=== PATIENT | female | born 1965 | race Caucasian/White ===

== ENCOUNTER 2017-08-23 23:51 | Inpatient (IN) | payer SELFPAY ==
[~2017-08-23] VITALS: Ht 157.5 cm; Wt 57.1 kg
[2017-08-24] VITALS (9 sets, daily range): BP systolic 105–159; BP diastolic 63–79; PULSE 82–100; RESP 18–29; TEMP 97.2–98.8; O2SAT 95–98
[2017-08-24] MEDS ORDERED: HYDROmorphone HCL PF 2 MG/ML VIAL IV ONE (02:15)
[2017-08-24] MEDS ORDERED: SODIUM CHLOR 0.9% 1000 ML INJ 1,000 ML IV ONE (03:30)
[2017-08-24] MEDS ORDERED: PROCHLORPERAZINE INJ 10 MG/2 ML VIAL IM ONE (03:30)
[2017-08-24] MEDS ORDERED: diphenhydrAMINE HCL 50 MG/ML VIAL IV PUSH ONE (03:30)
[2017-08-24] MEDS ORDERED: SODIUM CHLOR 0.9% 1000 ML INJ 1,000 ML IV SCH (03:51)
[2017-08-24] MEDS ORDERED: POTASSIUM PHOSPHATE INJ 30 MMOL in SODIUM CHLOR 0.9% 250 ML INJ 250 ML IV PRN (04:00)
[2017-08-24] MEDS ORDERED: POTASSIUM CHLOR 20 MEQ PREMIX 100 ML IV PRN ×2 (04:00)
[2017-08-24] MEDS ORDERED: ACETAMINOPHEN 325 MG TAB PO PRN (04:00)
[2017-08-24] MEDS ORDERED: SENNOSIDES 8.6 MG TAB PO PRN (04:00)
[2017-08-24] MEDS ORDERED: RESP: ALBUTEROL 2.5 MG/3 ML NEB (PRN) INH (04:00)
[2017-08-24] MEDS ORDERED: MAGNESIUM HYDROXIDE SUSP 30 ML CUP PO PRN (04:00)
[2017-08-24] MEDS ORDERED: MAGNESIUM SULFATE INJ 4 GM in SODIUM CHLORIDE 0.9% INJ 92 ML IV PRN (04:00)
[2017-08-24] MEDS ORDERED: MAGNESIUM OXIDE 400 MG TAB PO PRN (04:00)
[2017-08-24] MEDS ORDERED: MISCELLANEOUS NURSING INFORMATION XX SCH (04:00)
[2017-08-24] MEDS ORDERED: POTASSIUM CHLOR 40 MEQ PREMIX 100 ML IV PRN ×2 (04:00)
[2017-08-24] MEDS ORDERED: DEXAMETHASONE SOD PHOS 20 MG/5 ML VIAL IV PUSH ONE (04:00)
[2017-08-24] MEDS ORDERED: POTASSIUM CHLORIDE 25 MEQ EFFERVESCENT TAB PO PRN (04:00)
[2017-08-24] MEDS ORDERED: BISACODYL 10 MG SUPP RECTAL PRN (04:00)
[2017-08-24] MEDS ORDERED: LACTULOSE SYRUP 20 GM/30 ML CUP PO PRN (04:00)
[2017-08-24] MEDS ORDERED: MAGNESIUM SULFATE INJ 2 GM in SODIUM CHLORIDE 0.9% INJ 96 ML IV PRN (04:00)
[2017-08-24] MEDS ORDERED: SODIUM PHOSPHATE INJ 30 MMOL in SODIUM CHLOR 0.9% 250 ML INJ 240 ML IV PRN (04:00)
[2017-08-24] MEDS ORDERED: SODIUM CHLORIDE 0.9% FLUSH 10 ML FLUSH IV FLUSH PRN (04:00)
[2017-08-24] MEDS ORDERED: ONDANSETRON HCL 4 MG/2 ML VIAL IV PUSH PRN (04:00)
[2017-08-24] MEDS ORDERED: POTASSIUM PHOSPHATE MONOBASIC 500 MG TAB PO PRN (04:00)
[2017-08-24] MEDS ORDERED: traZODone HCL 50 MG TAB PO PRN (04:00)
[2017-08-24] MEDS ORDERED: CHLORHEXIDINE GLUCONATE 2 % 1 PACK (2 CLOTHS) TOP PRN (04:00)
[2017-08-24] MEDS: CHLORHEXIDINE GLUCONATE 2 % 1 PACK (2 CLOTHS) TOP SCH (04:00)
[2017-08-24] MEDS ORDERED: POTASSIUM PHOSPHATE MONOBASIC 500 MG TAB PO/TUBE PRN (04:00)
[2017-08-24] MEDS: ACETAMIN 325 MG/BUTALBITAL 50 MG/CAFFEINE 40 MG TAB PO PRN ×3 (04:34→21:39)
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
[2017-08-24] MEDS ORDERED: hydrALAZINE HCL 20 MG/ML VIAL IV PUSH PRN (07:15)
[2017-08-24] MEDS ORDERED: DEXTROSE 50% IN WATER 50 ML VIAL(D50) IV PUSH PRN (07:30)
[2017-08-24] MEDS ORDERED: GLUCAGON 1 MG/ML VIAL OTHER PRN (07:30)
[2017-08-24] MEDS: INSULIN ASPART SUPPLEMENTAL SCALE SQ SCH ×4 (08:00→20:52)
[2017-08-24] MEDS: DOCUSATE SODIUM 50 MG/SENNA 8.6 MG TAB PO SCH ×2 (08:05→20:52)
[2017-08-24] MEDS: SODIUM CHLORIDE 0.9% FLUSH 10 ML FLUSH IV FLUSH SCH ×2 (08:05→20:52)
[2017-08-24] MEDS: PANTOPRAZOLE SOD 40 MG DELAYED RELEASE TAB PO SCH (08:06)
[2017-08-24 09:10] LABS: BICARBONATE 24.2 MEQ/L (21.0-32.0); CALCIUM 9.2 MG/DL (8.5-10.1); CREATININE 0.62 MG/DL (0.50-1.00)
[2017-08-24] MEDS: oxyCODONE/ACETAMINOPHEN 10 MG/325 MG TAB PO PRN ×3 (09:36→20:50)
[2017-08-24] MEDS ORDERED: LORazepam 2 MG/ML VIAL ONE (11:03)
[2017-08-24] MEDS ORDERED: LORazepam 2 MG/ML VIAL IV PUSH ONE (11:15)
[2017-08-24] MEDS ORDERED: GADODIAMIDE PF 287 MG/ML 10 ML VIAL (for RAD MRI) IVCONTRAST ONE (11:30)
--- NOTE | 2017-08-24 12:00 | RADRPT ---
EXAM DATE/TIME: 08/24/2017 11:01 [facility] COMPARISON: No previous studies available for comparison. INDICATIONS : Cephalgia. CONTRAST: 10 cc Omniscan (gadodiamide) IV MEDICAL HISTORY : None. SURGICAL HISTORY : Cholecystectomy. Breast augmentation. Mastoid surgery. ENCOUNTER: Initial ACUITY: 1 day PAIN SCORE: 4/10 LOCATION: cranial TECHNIQUE: Multiplanar, multisequence MRI of the brain was performed both prior to and following the administrat ion of paramagnetic contrast. FINDINGS: CEREBRUM: The ventricles are normal for age. No evidence of midline shift, mass lesion, hemorrhage or acute in farction. No extraaxial fluid collections are seen. The pituitary gland and suprasellar cistern are normal in configuration. WHITE MATTER: No significant signal abnormalities are seen in the white matter. POSTERIOR FOSSA: The cerebellum and brainstem are intact. The 4th ventricle is midline. The cerebellopontine angle is unremarkable. The cerebellar tonsils are normal in position. DIFFUSION IMAGING: No focal areas of restricted diffusion are seen. No evidence of acute infarction. EXTRACRANIAL: The visualized portions of the orbits and paranasal sinuses are unremarkable. POST-CONTRAST: No abnormal areas of parenchymal or dural enhancement. No evidence of blood-brain barrier breakdown. CONCLUSION: No acute disease. Sendy Cabrera MD on August 24, 2017 at 11:57 Board Certified Radiologist. This report was verified electronically.
--- NOTE | 2017-08-24 12:02 | RADRPT ---
EXAM DATE/TIME: 08/24/2017 11:01 [facility] COMPARISON: MRI BRAIN W & W/O CONTRAST, August 24, 2017, 11:01. INDICATIONS : Cephalgia. MEDICAL HISTORY : None. SURGICAL HISTORY : Cholecystectomy. Breast augmentation. Mastoid surgery. ENCOUNTER: Initial ACUITY: 1 day PAIN SCORE: 4/10 LOCATION: cranial Please note a normal MRA of the brain does not entirely exclude the possibility of a small aneurysm, nor the possibility of distal intracranial vessel disease. TECHNIQUE: 3D time of flight MRA was performed. Source images, multiplanar STS MIP, and 3D volume MIP reconstru ctions were reviewed. FINDINGS: There is excellent visualization of the major intracranial arteries out to the second-order branch ve ssels. There is no evidence for aneurysm, vessel truncation or stenosis, and no evidence for vascula r malformation. CONCLUSION: Normal examination. Senyd Cabrera MD on August 24, 2017 at 11:58 Board Certified Radiologist. This report was verified electronically.
--- NOTE | 2017-08-24 15:40 | HHI.CCPN ---
Subjective Remarks/Hospital Course 51-year-old female who reports past medical history of migraine headaches who presented to [facility] 08/23/17 due to severe headache and was transferred to [facility] due to inability to rule out subarachnoid hemorrhage. She states headache started in the morning of 08/23 and gradually worsened throughout the day. She is unsure what she was doing when it started. She describes the pain as "throbbing" and "like her head is being split in two", very severe. Her whole head hurts but is worse on the left side. Headache is worse with moving her head or with sitting up and these maneuvers cause her to feel nauseated. She reports neck stiffness, photophobia , chills. No visual changes/scotoma. She did not check her temperature at home and was afebrile at the outside hospital and upon arrival. She states symptoms were not improved when she took acetaminophen and Percocet at home. She received morphine 5 mg Iv x2 in the emergency department each about an hour apart without relief. She was hypertensive with systolic blood pressure in the 180s over 90s, maximum BP was 225/128. Her blood pressure improved with hydralazine and she received a total of 10 mg IV 2 doses while in the ED and SBP came down to 120s to 130s. CT brain showed no acute abnormality. CBC had a white count of 8.1, hemoglobin 14, normal platelet count. Coags were normal. Normal sodium and creatinine. Lumbar puncture was performed around 9:30 PM on 08/24/17. Vial #2 had white blood cell count of 4 and 714 RBC. Vial #4 had 3 WBC and 336 RBC. Supernatant was clear with no xanthrochromia (and LP performed >8 hours from onset of symptoms). CSF protein and glucose were normal at 31.7 and 56 respectively. HSV PCR was sent and is pending. Although RBC count in CSF was downtrending, it did not clear completely and therefore SAH could not be ruled out so she has been transferred for ongoing evaluation, workup and headache management. She still complains of severe headache and nausea. Has decreased sensation soft touch to L face and L extremities. She states she has had 7-8 migraine headaches in her life, is not on preventative therapy, last headache was 2 years ago, unsure what abortive meds she was given in the past. She has chronic neck and R hip pain for which she takes percocet. Drinks 2 pots of coffee daily but has not cut back, drank coffee today at [place]. States this headache is worse than prior migraines and she never noticed sensory changes before. She states her children have had upper respiratory symptoms last week, were told by doctor they had a virus. She has had sore and dry cough for several days. 08/24 1500 hours: MRI and MRA are normal. No aneurysm. Possibly a migraine variant, will ask neurology to see. Objective Vital Signs Date Time Temp Pulse Resp B/P (MAP) Pulse Ox O2 Delivery O2 Flow Rate FiO2 08/24/17 14:00 92 08/24/17 12:00 98.5 29 106/66 (79) 98 08/24/17 07:00 Room Air Intake and Output 08/24/17 08/24/17 08/25/17 08:00 16:00 00:00 Intake Total 2050 ml Balance 2050 ml Result Diagram: 08/24/17805 Objective Remarks GENERAL: Well-nourished, well-developed patient who is sitting up in ISC bed, rubbing her forehead with her hand repeatedly, in a darkened room. SKIN: Warm and dry. HEAD: Atraumatic. Normocephalic. EYES: Pupils equal and round, 3 mm and reactive to 2 mm bilaterally. + photophobia during exam. No scleral icterus. No injection or drainage. ENT: No nasal bleeding or discharge. Mucous membranes pink and moist. NECK: Trachea midline. No JVD. Will not perform [id number]. Negative Kernig/ Brudzinski CARDIOVASCULAR: Regular rate and rhythm. No murmurs rubs or gallops. RESPIRATORY: No accessory muscle use. Clear to auscultation. Breath sounds equal bilaterally. GASTROINTESTINAL: Abdomen soft, non-tender, nondistended. Bowel sounds present. MUSCULOSKELETAL: Extremities without clubbing, cyanosis, or edema. No obvious deformities. NEUROLOGICAL: Awake and alert. Oriented x4. No obvious cranial nerve deficits. EOMI with no nystagmus. She reports decreased sensation to soft touch L face and LUE/LLE compared with the right. Sensation to temperature equal. No pronator drift. Strength 5/5 all extremities. A/P Assessment and Plan NEURO: Acute headache Traumatic tap vs. ?SAH Chronic neck and right hip pain CT at [place] negative for SAH. Lumbar puncture with downtrending PRBC, though did not clear completely. Lack of xanthochromia argues against subarachnoid hemorrhage. Ideally would perform CTA to rule out aneurysm however patient states she had severe allergic reaction to IV contrast when she had CT chest at [facility]. She states she had syncope and respiratory difficulty. Did not require ICU admission. Has never had another contrasted scan. Is opposed to risk of IV contrast even if pretreated with steroid/benadryl and under critical care monitoring. She definitely has significant headache and this includes some decreased sensation L face and extremities. Will proceed with MRI and MRA to evaluate for e/o aneurysm which would also help to determine if alternate explanation for symptoms, recognizing this may have lower sensitivity for small aneurysms. Symptoms would be consistent with migraine with sensory aura. This would not be expected to respond well to opioids so will try Compazine/benadryl with decadron for prevention of headache recurrence. Fiorcet prn. Consider outpatient followup for preventative therapy. CSF unremarkable for infection. F/u HSV and culture at [place] for completion. Bolus 1 L IVF for prevention spinal headache. We will continue chronic home Percocet RESP: Tobacco abuse On RA Cessation counseling CV: Hypertension May have underlying undiagnosed hypertension but likely acutely exacerbated by pain. Hydralazine/labetalol as needed for systolic blood pressure greater than 140 GI: Clear liquid diet Bowel regimen FEN/RENAL: Normal renal function 0.9 NaCl at 84 mL/h for 1 L . ID: No evidence of infection. Follow-up final CSF culture and HSV PCR from [place] HEME: No acute hematologic issues ENDO: Monitor glucose after receiving steroids and administer low-dose insulin sliding scale as indicated. PROPH: SCDs for DVT prophylaxis. Avoid pharmacologic DVT prophylaxis due to lumbar puncture within 24 hours. Protonix 40 mg p.o. daily for stress ulcer prophylaxis after steroid. Can be discontinued after taking p.o. well. ACCESS: Peripheral IV providing adequate access at this time Patient updated at bedside regarding plan of care Overall impression: Major concern at [facility] was cerebral aneurysm. MRI normal. Brain MRA normal and no aneurysm. No subarachnoid blood. Severity of headache and persistence of elevated red cell count in the CSF triggered this workup. I cannot readily explain the facial numbness. My best guess is a migraine variant but I will ask the neurology service to evaluate. Berhane Bee MD Aug 24, 2017 15:40
--- NOTE | 2017-08-24 20:05 | EKG ---
Date Performed: 08/24/2017 Time Performed: 02:47:26 PTAGE: 51 years EKG: Sinus rhythm . Normal ECG NO PREVIOUS TRACING DOCTOR: Clint Pereira Interpretating Date/Time 08/24/2017 20:05:04
[2017-08-24] MEDS ORDERED: METHOCARBAMOL 500 MG TAB PO ONE (23:00)
[2017-08-25] VITALS: BP 95/54; PULSE 83; RESP 20; TEMP 97.9; O2SAT 96
[2017-08-25] MEDS: CHLORHEXIDINE GLUCONATE 2 % 1 PACK (2 CLOTHS) TOP SCH (04:00)
[2017-08-25 04:36] LABS: AUTOMATED NEUTROPHIL # 4.1 TH/MM3 (1.8-7.7); BASOPHIL # 0.1 TH/MM3 (0-0.2); EOSINOPHIL # 0.1 TH/MM3 (0-0.4); EOSINOPHIL % 1.7 % (0.0-4.0); HEMATOCRIT 37.2 % (35.0-46.0); HEMOGLOBIN 12.9 GM/DL (11.6-15.3); LYMPH % 39.8 % (9.0-44.0); LYMPHOCYTE # 3.4 TH/MM3 (1.0-4.8); MEAN CELL VOLUME 105.6 FL (80.0-100.0); MEAN CORPUSCULAR HEMOGLOBIN 36.5 PG (27.0-34.0); MEAN CORPUSCULAR HGB CONC 34.6 % (32.0-36.0); MEAN PLATELET VOLUME 7.4 FL (7.0-11.0); MONO % 9.3 % (0.0-8.0); MONOCYTE # 0.8 TH/MM3 (0-0.9); NEUT % 48.2 % (16.0-70.0); PLATELET COUNT 329 TH/MM3 (150-450); RED BLOOD COUNT 3.52 MIL/MM3 (4.00-5.30); RED CELL DISTRIBUTION WIDTH 12.1 % (11.6-17.2); WHITE BLOOD COUNT 8.5 TH/MM3 (4.0-11.0)
[2017-08-25 05:03] LABS: BICARBONATE 29.8 MEQ/L (21.0-32.0); CALCIUM 8.8 MG/DL (8.5-10.1); CREATININE 0.64 MG/DL (0.50-1.00)
[2017-08-25] MEDS: ACETAMIN 325 MG/BUTALBITAL 50 MG/CAFFEINE 40 MG TAB PO PRN ×2 (06:14→11:53)
[2017-08-25] MEDS: oxyCODONE/ACETAMINOPHEN 10 MG/325 MG TAB PO PRN ×2 (06:15→11:53)
[2017-08-25] MEDS ORDERED: POTASSIUM CHLORIDE 20 MEQ CONTROLLED RELEASE TAB PO ONE (06:30)
[2017-08-25 08:00] VITALS: BP 143/70; PULSE 81; RESP 20; TEMP 97.8; O2SAT 97
[2017-08-25] MEDS: INSULIN ASPART SUPPLEMENTAL SCALE SQ SCH ×2 (08:00→11:53)
[2017-08-25] MEDS: PANTOPRAZOLE SOD 40 MG DELAYED RELEASE TAB PO SCH (08:16)
[2017-08-25] MEDS: DOCUSATE SODIUM 50 MG/SENNA 8.6 MG TAB PO SCH (08:16)
[2017-08-25] MEDS: SODIUM CHLORIDE 0.9% FLUSH 10 ML FLUSH IV FLUSH SCH (08:17)
[2017-08-25] MEDS ORDERED: AMOXICILLIN/CLAVULANATE K 875 MG TAB PO ONE (11:30)
[2017-08-25] MEDS ORDERED: NICOTINE 14 MG/24 HR PATCH T-DERMAL SCH (11:30)
[2017-08-25] MEDS ORDERED: ONDANSETRON ODT 4 MG TAB PO PRN (12:00)
[2017-08-25] MEDS ORDERED: ACETAMINOPHEN 500 MG CPLT PO PRN (13:00)
[2017-08-25] MEDS ORDERED: oxyCODONE/ACETAMINOPHEN 10 MG/325 MG TAB PO PRN (13:00)
--- NOTE | 2017-08-25 13:56 | HHI.PR ---
Subjective Remarks Follow-up for severe headache. Patient complains of significant headache. No fever or chills. She requests her pain medication including Fioricet to be continued. Objective Vitals Vital Signs Date Time Temp Pulse Resp B/P (MAP) Pulse Ox O2 Delivery O2 Flow Rate FiO2 08/25/17 08:00 97.8 81 20 143/70 (94) 97 08/25/17 00:00 97.9 83 20 95/54 (68) 96 08/24/17 20:00 89 20 105/68 (80) 95 08/24/17 16:30 97.2 100 18 123/79 (94) 97 08/24/17 14:00 92 I/O 08/24/17 08/24/17 08/24/17 08/25/17 08/25/17 08/25/17 07:00 15:00 23:00 07:00 15:00 23:00 Intake Total 2050 ml 480 ml 960 ml 120 ml Output Total 3 ml Balance 2050 ml 480 ml 957 ml 120 ml Intake Oral 50 ml 480 ml 960 ml 120 ml IV Total 2000 ml Output Urine Total 3 ml Result Diagram: 08/25/17 0358 08/25/17 0358 Imaging Last Impressions Head Magnetic Resonance Angiography 08/24/17 0000 Signed Impressions: Service Date/Time: Thursday, August 24, 2017 11:01 - CONCLUSION: Normal examination. Sendy Cabrera MD Brain MRI 08/24/17 0000 Signed Impressions: Service Date/Time: Thursday, August 24, 2017 11:01 - CONCLUSION: No acute disease. Sendy Cabrera MD Objective Remarks GENERAL: Alert, oriented 3, NAD. SKIN: Warm and dry. HEAD: Normocephalic. Significant tenderness over maxillary and frontal sinuses. EYES: No scleral icterus. No injection or drainage. NECK: Supple, trachea midline. No JVD or lymphadenopathy. CARDIOVASCULAR: Regular rate and rhythm without murmurs, gallops, or rubs. RESPIRATORY: Breath sounds equal bilaterally. No accessory muscle use. GASTROINTESTINAL: Abdomen soft, non-tender, nondistended. MUSCULOSKELETAL: No cyanosis, or edema. BACK: Nontender without obvious deformity. No CVA tenderness. A/P Problem List: (1) Headache ICD Code: R51 - Headache Assessment and Plan 51-year-old female who reports past medical history of migraine headaches who presented to [facility] 08/23/17 due to severe headache and was transferred to [facility] due to inability to rule out subarachnoid hemorrhage. Patient was initially admitted to ICU. All work up so far has been negative. Acute headache Acute sinusitis Patient reports that 5 children at home have been sick and she feels that she is sick as well She reports sinusitis, cough Physical exam indicates possibility of acute sinusitis. Given her extensive negative work up, we would like to entertain the possibility of this headache due to Sinusitis Will obtain CT sinus without contrast Start Augmentin 875 BID. Neurology consulted - however, there is some confusion about who is going to see the patient. Dr. Schroeder was contacted. Apparently, patient is not on his list. Chronic pain - Will restart patient's pain medications. Full Code. Ambulation. Chata Velez DO Aug 25, 2017 1:56 pm
[2017-08-25] MEDS ORDERED: AUGM875T3 PO (14:39)
[2017-08-25] MEDS ORDERED: ACETAMIN 325 MG/BUTALBITAL 50 MG/CAFFEINE 40 MG TAB PO PRN (15:00)
[2017-08-25] MEDS ORDERED: ACETAMIN 325 MG/BUTALBITAL 50 MG/CAFFEINE 40 MG TAB PO ONE (15:00)
[2017-08-25] MEDS ORDERED: AMOXICILLIN/CLAVULANATE K 875 MG TAB PO SCH (21:00)
[2017-08-26] MEDS ORDERED: NICOTINE 14 MG/24 HR PATCH T-DERMAL SCH (09:00)
[2017-08-26] MEDS ORDERED: REMOVE OLD PATCH T-DERMAL SCH (09:00)
== END 2017-08-25 15:17 | disposition left against medical advice (07) | DRG 103 ==
LOC: N03B 08-24 01:29 → N07B 08-24 16:43
PROVIDERS: ADMIT Hospitalist; ATTEND Hospitalist
DX: G43.909 Migraine, unspecified, not intractable, without status migrainosus (principal); I10 Essential (primary) hypertension; J01.90 Acute sinusitis, unspecified; R05 Cough; M25.551 Pain in right hip; M54.2 Cervicalgia; G89.29 Other chronic pain; F17.200 Nicotine dependence, unspecified, uncomplicated
CPT/HCPCS: 70544; 70553; 80048; 82948; 84702; 85025; 87641; 93005; A9579; J0780; J1100; J1170; J1200; J2060; J7030